=== PATIENT | male | born 1955 | race Caucasian/White ===

== ENCOUNTER → 2022-06-08 | Outpatient (CLI) | payer MEDICARE ==
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
== END | disposition home or self-care (01) ==
LOC: RADUSWWP 08:58
PROVIDERS: ATTEND Family Medicine
DX: R22.41 Localized swelling, mass and lump, right lower limb (principal)

== ENCOUNTER 2024-09-05 15:56 | Emergency (ER) | payer MEDICARE ==
[2024-09-05 16:04] VITALS: TEMP 97.9
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
[2024-09-05 17:15] LABS: Appearance,Urine Clear (Clear); Bilirubin,Urine Negative (Negative); Blood,Urine Negative (Negative); Color,Urine Colorless; Glucose,Urine (UA) Negative (Negative); Ketones,Urine Negative (Negative); Leukocyte Esterase,Urine Negative (Negative); Nitrite,Urine Negative (Negative); PH, Urine 5.5 (5.0-8.0); Protein,Urine Negative (Negative); Specific Gravity,Urine 1.016 (1.001-1.035); Urobilinogen,Urine <2.0 mg/dL (<2.0)
[2024-09-05 17:17] LABS: Basophils % (A) 0 %; Eosinophils # (A) 0.4 k/uL (0-0.7); Eosinophils % (A) 4 %; HCT 49.7 % (39.0-53.0); HGB 16.2 gm/dL (13.0-17.5); Lymphocytes # (A) 2.4 k/uL (1.0-4.8); Lymphocytes % (A) 26 %; MCH 31.7 pg (25.0-35.0); MCHC 32.6 g/dL (31.0-37.0); MCV 97.1 fL (80.0-100.0); Mean Platelet Volume 7.8; Monocytes # (A) 0.6 k/uL (0-1.0); Monocytes % (A) 7 %; Neutrophils # (A) 5.7 k/uL (1.3-7.7); Neutrophils % (A) 61 %; Platelet Count 265 k/uL (150-450); RBC 5.12 m/uL (4.30-5.90); RDW 12.5 % (11.5-15.5); WBC 9.2 k/uL (3.8-10.6)
[2024-09-05 17:55] LABS: ALT 29 U/L (4-49); AST 37 U/L (17-59); African American GFR (CKD) >90 (>60 ml/min/1.73 sqM); Albumin 4.9 g/dL (3.5-5.0); Alkaline Phosphatase 82 U/L (38-126); Amylase 49 U/L (30-110); Anion Gap 8 mmol/L; Blood Urea Nitrogen 14 mg/dL (9-20); Calcium 9.3 mg/dL (8.4-10.2); Carbon Dioxide 32 mmol/L (22-30); Chloride 100 mmol/L (98-107); Glucose 88 mg/dL (74-99); Lipase 98 U/L (23-300); Non-African American GFR(CKD) 89 (>60 ml/min/1.73 sqM); Potassium 3.7 mmol/L (3.5-5.1); Sodium 140 mmol/L (137-145); Total Bilirubin 0.9 mg/dL (0.2-1.3); Total Protein 7.8 g/dL (6.3-8.2)
[2024-09-05] MEDS: SODIUM CHLORIDE 0.9% 1,000 ML IV STA (18:33)
--- NOTE | 2024-09-05 18:38 | CT ---
EXAMINATION TYPE: CT abdomen pelvis w con DATE OF EXAM: 09/05/2024 6:25 PM COMPARISON: CT abdomen pelvis most recent from 04/08/2010. CLINICAL INDICATION: Male, 69 years old with history of RLQ/pelvic pain; RLQ/pelvic pain TECHNIQUE: Axial CT abdomen pelvis w con;Sagittal and coronal reformats were created on a separate w orkstation. Contrast used:100ml mL of Isovue 300 with IV Contrast, (none if empty) Oral contrast used: without Oral Contrast (none if empty) CT DLP: 1093.5 mGycm, Automated exposure control for dose reduction was used. FINDINGS: LOWER CHEST: Unremarkable ABDOMEN LIVER: Unremarkable GALLBLADDER AND BILE DUCTS: Layering increased densities within the lumen consistent with gallstones are present. PANCREAS: Unremarkable. SPLEEN: Unremarkable. ADRENAL GLANDS: Unremarkable. KIDNEYS AND URETERS: No evidence of hydronephrosis. Nonobstructing right 2 mm renal calculus. The ure ters are unremarkable. Right simple appearing renal cysts. PELVIS BLADDER: No evidence for wall thickening or mass given limitations of exam. REPRODUCTIVE: Unremarkable. ABDOMEN & PELVIS STOMACH AND BOWEL: No evidence of bowel obstruction. Scattered colonic diverticula. Large stool in th e cecum and throughout the colon the appendix appears normal. PERITONEUM/RETROPERITONEUM: No evidence of pneumoperitoneum or free fluid. VASCULATURE: No evidence of aortic aneurysm. MUSCULOSKELETAL: No acute osseous abnormalities LYMPH NODES: No gross evidence for lymphadenopathy. SOFT TISSUE/ABDOMINAL WALL: Fat-containing bilateral inguinal hernias. IMPRESSION: 1. No evidence for acute abdominal process. No obstructive uropathy or renal calculus. The appendix is normal. 2. Large amount stool throughout the colon including the cecum. 3. Colonic diverticulosis. 4. Nonobstructing right renal calculus. 5. Cholelithiasis. [facility], , 09/05/2024 6:36 PM
[2024-09-05 19:28] VITALS: BP 186/83; PULSE 55; RESP 20
== END 2024-09-05 19:28 | disposition home or self-care (01) ==
LOC: EC 15:56
DX: K40.90 Unilateral inguinal hernia, without obstruction or gangrene, not specified as recurrent (principal); K57.30 Diverticulosis of large intestine without perforation or abscess without bleeding; K59.00 Constipation, unspecified; K80.20 Calculus of gallbladder without cholecystitis without obstruction; N20.0 Calculus of kidney; Z87.891 Personal history of nicotine dependence; Z88.8 Allergy status to other drugs, medicaments and biological substances
CPT/HCPCS: 36415; 80053; 82150; 83605; 83690; 85025; 81003; 74177; 99284; 96360; Q9967

== ENCOUNTER 2024-09-29 10:15 | Day surgery (SDC) | payer MEDICARE ==
[2024-09-25 12:11] VITALS: BMI 29.3
[~2024-09-29 10:15] MED LIST: HYDROmorphone 0.5 MG/0.5 ML SYRINGE IVP PRN; LIDOCAINE 1% (10MG/ML) FOR IV START INTRADERMA PRN; fentaNYL (PF) 50 MCG/ML 2 ML AMP IVP PRN
[2024-09-29 10:54] VITALS: RESP 16
[2024-09-29] MEDS: LACTATED RINGERS 1,000 ML IV SCH (11:27)
[2024-09-29] MEDS: DEXAMETHASONE SOD PHOSPHATE 4 MG/ML 1 ML VIAL IV ONE (11:28)
[2024-09-29] MEDS: ONDANSETRON 4 MG/2 ML VIAL IVP ONE (11:28)
[2024-09-29] MEDS: MIDAZOLAM 2 MG/2 ML VIAL IV PRN (11:32)
--- NOTE | 2024-09-29 11:54 | P.ANPRN ---
Procedure Note - Anesthesia - Nerve Block Performed Right Transversus Abdominis Single Date of Procedure: 09/29/24 Procedure Start Time: : Procedure Stop Time: :38 Indication: Acute Post-Operative Pain, Requested by Surgeon Sedation Type: Sedate with meaningful contact maintained Preparation: Sterile Prep Position: Supine Needle Gauge: 21 Ultrasound used to visualize needle placement: Yes Ultrasound used to observe medication spread: Yes Injectate: 0.5% Ropivacaine (see comment for volume) (15 mls of Ropivacaine 0.5% diluted with 10 mls of NS.) Blood Aspirated: No Pain Paresthesia on Injection Noted: No Resistance on Injection: Normal Image Stored and Saved: Yes
[2024-09-29] MEDS: HEPARIN SODIUM,PORCINE 5,000 UNIT/ML 1 ML VIAL SQ STA (12:43)
[2024-09-29] MEDS ORDERED: NEOSTIGMINE 1 MG/ML 10 ML VIAL ONE (12:45)
[2024-09-29] MEDS ORDERED: fentaNYL (PF) 50 MCG/ML 2 ML AMP ONE (12:45)
[2024-09-29] MEDS ORDERED: PHENYLEPHRINE-0.9% NACL SYG 1,000 MCG/10 ML SYRINGE ONE (12:45)
[2024-09-29] MEDS ORDERED: ROPIVACAINE 5 MG/ML 30 ML VIAL ONE (12:45)
[2024-09-29] MEDS ORDERED: MIDAZOLAM 2 MG/2 ML VIAL ONE (12:45)
[2024-09-29] MEDS ORDERED: PROPOFOL 10 MG/ML 20 ML VIAL IV ONE (12:45)
[2024-09-29] MEDS ORDERED: GLYCOPYRROLATE 0.2 MG/ML 2 ML VIAL ONE (12:45)
[2024-09-29] MEDS ORDERED: SODIUM CHLORIDE 0.9% (PF) 10 ML VIAL ONE (12:45)
[2024-09-29] MEDS ORDERED: ROCURONIUM 10 MG/ML (5 ML VIAL) IV ONE (12:45)
[2024-09-29] MEDS ORDERED: ALBUTEROL HFA INHALER INHALATION ONE (12:45)
[2024-09-29] MEDS ORDERED: SUCCINYLCHOLINE CHLORIDE 200 MG/10 ML VIAL IV ONE (12:45)
[2024-09-29] MEDS ORDERED: LIDOCAINE 1% INJ 10MG/ML (20 ML MDV) ONE (12:45)
[2024-09-29] MEDS: LIDOCAINE 1%-EPI 1:100,000 20 ML VIAL SQ ONE ×3 (13:16)
[2024-09-29] MEDS: LACTATED RINGERS 1,000 ML IV ONE (13:53)
[2024-09-29 14:10] VITALS: TEMP 97
[2024-09-29] MEDS: IV FLUID CONTINUATION 1,000 ML IV ONE (14:39)
[2024-09-29 16:07] VITALS: BP 139/85; PULSE 73
--- NOTE | 2024-09-30 10:27 | P.OP ---
Date of Procedure: 09/29/24 Preoperative Diagnosis: Right inguinal hernia Postoperative Diagnosis: Right inguinal indirect hernia Procedure(s) Performed: Robotic right inguinal hernia repair with mesh Anesthesia: DEXTER Surgeon: Archana Kirk Pathology: none sent Condition: stable Disposition: same day Indications for Procedure: 69-year-old male presented to the surgery clinic with complaint of significant right groin pain. He was found to have a right inguinal hernia. History of robotic prostatectomy. Plan for robotic right inguinal hernia repair with possibility of open procedure. Risks, benefits and alternatives were provided to the patient. All questions answered. Operative Findings: Right inguinal indirect hernia Description of Procedure: Patient was brought to the operating suite and placed in supine position on the operating table. Sedation was provided by anesthesia and patient underwent endotracheal intubation. Patient was then prepped and draped in regular sterile fashion. A supraumbilical incision was made approximately 20 cm superior to the pubic symphysis. Dissection was carried to the fascia. The fascia was incised in a 8 mm trocar was placed. At this point pneumoperitoneum was achieved. 2 additional incisions were made approximately 11 cm lateral to the supraumbilical incision and 8 mm trocars were placed. The patient was then placed in Trendelenburg position and the hernia site was clearly visualized on the right side. This was noted as an indirect inguinal hernia. Patient was noted to have some intra-abdominal adhesions that were taken down using laparoscopic Metzenbaum scissors. The robot was then docked appropriately. Incision was then made just lateral to the medial umbilical ligament on the right side with monopolar scissors and the peritoneal flap was created and was taken down towards Mendel's ligament. The flap was then extended laterally. Attention was then turned to the indirect inguinal hernia. The sac was then freed from the cord all while preserving the cord structures. At this point the indirect hernia was reduced. Once the entire space was approximately dissected out, we brought the laparoscopic ProGrip mesh and unrolled it over the hernia site. Once appropriately in place the peritoneal flap was closed using running 2 OV lock suture. Once this was completed we removed all robotic instruments and undocked the robot. The supraumbilical fascial incision was closed with an 0 Vicryl suture using a Harish-El device. This was done under laparoscopic guidance. All skin incisions were then closed with 4-0 Vicryl suture. The patient was then taken to postanesthesia care unit in stable condition.
== END 2024-09-29 16:31 | disposition home or self-care (01) ==
LOC: OR 10:15
PROVIDERS: ATTEND Surgery
DX: K40.90 Unilateral inguinal hernia, without obstruction or gangrene, not specified as recurrent (principal); G89.18 Other acute postprocedural pain; J45.909 Unspecified asthma, uncomplicated; Z79.899 Other long term (current) drug therapy; Z88.8 Allergy status to other drugs, medicaments and biological substances
CPT/HCPCS: 49650; S2900; 64486; 64488